=== PATIENT | female | born 1995 | race Hispanic/Latino ===

== ENCOUNTER 2018-08-05 08:08 | Day surgery (SDC) | payer OTHER, SELFPAY ==
[2018-08-04 16:35] LABS: Absolute Lymphocytes (CBC) 2.5 K/uL (0.7-4.9); Absolute Monocytes 0.5 K/uL (0.1-1.3); Absolute Neutrophil 5.7 K/uL (1.8-8.0); Basophils % 0.3 % (0-1.3); Eosinophils % 2.9 % (0-4.4); Hematocrit 38.8 % (36.0-45.0); Lymphocytes % 27.9 % (15.3-44.8); MPV 11.4 fL (7.6-11.3); Monocytes % 5.8 % (3.3-12.3); RBC Red Blood Cell Count 4.95 M/uL (3.86-4.86)
[2018-08-04 17:04] LABS: Potassium 3.7 mmol/L (3.5-5.1)
[2018-08-05] MEDS ORDERED: Ringers Lactate 1,000 ML IV ONE (08:26)
[2018-08-05] MEDS ORDERED: LIDOCAINE 1% MPF 5 ML VIAL ONE (09:14)
[2018-08-05] MEDS ORDERED: FENTANYL CITR 100 MCG/2 ML ONE (09:14)
[2018-08-05] MEDS ORDERED: PROPOFOL 200 MG/20 ML VIAL IV ONE (09:14)
[2018-08-05] MEDS ORDERED: MIDAZOLAM HCL 2 MG/2 ML INJ ONE (09:15)
[2018-08-05] MEDS ORDERED: CEFAZOLIN/SWI 1gm 1 GM/10 ML SYR ONE (09:29)
[2018-08-05] MEDS ORDERED: KETOROLAC 30 MG/ML INJ ONE (09:52)
[2018-08-05] MEDS ORDERED: ONDANSETRON 4 MG/2 ML VIAL ONE (10:06)
--- NOTE | 2018-08-05 10:23 | P.BOP ---
Preoperative diagnosis: left breast tender palpable mass Postoperative diagnosis: same Primary procedure: Left breast lumpectomy Forestry Crew Chief: Yenifer Gardner (Karina) Estimated blood loss: <10cc Specimen: breast mass Findings: see dictation Anesthesia: General Complications: None Transferred to: Recovery Room Condition: Good
[2018-08-05] MEDS ORDERED: Mastisol Adhesive Liq ONE (10:34)
[2018-08-05] MEDS: HYDROMORPHONE HCL 1 MG/ML INJ ONE ×2 (10:49→10:54)
[2018-08-05] MEDS ORDERED: CODEINE 30MG/APAP 300MG TAB ONE (11:33)
--- NOTE | 2018-08-06 19:43 | OP ---
Date of Procedure: 08/06/2018 Surgeon: Mack Manzano MD Design Draftsman: Doris Cunha Preoperative Diagnosis: Left breast tender palpable mass. Postoperative Diagnosis: Left breast tender palpable mass. Procedure: Left breast lumpectomy. Estimated Blood Loss: Less than 10 cc. Specimen: Breast mass. Anesthesia: General plus local. Findings: The patient has clearly palpable left breast mass, multilobulated. Indications: This is a case of a 22-year-old patient, who comes to us with a larger mass and given h er pain and discomfort, she wants that removed. It is large mass in that region. The benefits, alte rnatives, and risks of lumpectomy fully explained to the patient, which include but are not limited t o infection, bleeding, damage to adjacent structures, anesthesia complication, chronic pain, chronic numbness, deformity, VA, even . She also understands this may not relieve the symptoms. She mi ght need more than one surgical intervention. She wants the mass removed. She does not just want to continue with just conservative treatment or needle biopsies. Description Of Procedure: The patient was brought to the operating room, placed in supine position. Anesthesia was done without complication. The area was marked by me and the patient in the holding room. So, we prepped and draped the left breast in a usual sterile fashion. Made a curvilinear inci estephania, incision was carried down to deep breast tissue and now we found the mass. We remove the mass from the area, it is a large mass, completely out. Area was irrigated. Hemostasis was obtained and then the area was closed with a combination of 3-0 chromic and then 4-0 PDS. Sponge count and instru ment counts were correct. This was done after irrigation and after hemostasis. The patient sent to Recovery in stable condition. DISCHARGE SUMMARY Diagnosis: Left breast tender palpable mass. Procedure: Left breast lumpectomy. Disposition: Home. Activity: As tolerated. No heavy lifting. Followup: Follow up in my office in 1 week. Call for appointment [phone]. Keep the area dry for 4 8 hours and then may shower. Keep Steri-Strip intact. The patient advised the importance of breast support. Medications: See orders. HM/MODL Voice ID: [id number] Report ID: [id number]
== END 2018-08-05 12:00 | disposition home or self-care (01) ==
LOC: OR 08:08
PROVIDERS: ATTEND Surgery
PROC: 0HBU0ZX Excision of Left Breast, Open Approach, Diagnostic (ICD-10-PCS; principal; 2018-08-05 10:00)
DX: D48.62 Neoplasm of uncertain behavior of left breast (principal)
CPT/HCPCS: 36415; 80048; 84703; 85025; 88305; 88307; J0690; J1170; J2250; J2405; J2704; J3010

== ENCOUNTER 2021-07-03 16:41 | Inpatient (IN) | payer OTHER, SELFPAY ==
--- OUTSIDE RECORDS SUMMARY | 2021-07-03 17:26 | XMS REPORT | Continuity of Care Document ---
:1995 Author Organization [facility] t Address [address] [place] [address] Dr. Orr [address] [place] [id number] Care Team Providers Name Role Phone MARCELINO MASTERSON Attending Clinician Unavailable Problems This patient has no known problems. Allergies, Adverse Reactions, Alerts Allergy Allergy Status Severity Reaction(s) Onset Inactive Treating Comm ents Source Name Type Date Date Clinician NO KNOWN Drug Active [facility] ALLERGMARILYN [facility] Medications This patient has no known medications. Procedures This patient has no known procedures. Encounters Start End Encounter Admission Attending Care Care Encounter Source Date/Time Date/Time Type Type Clinicians Facility Department ID 2020-06-21 2020-06-21 Outpatient R TIFFANIE MASTERSON [facility] [id number] [employer] 11:20:00 11:20:00 MARCELINO portillo [facility] Results This patient has no known results.
[2021-07-03 18:25] LABS: Urine Blood Trace-intact (Negative); Urine Glucose Negative (Negative); Urine Protein Negative (Negative); Urine Specific Gravity >=1.030 (1.005-1.030)
[2021-07-03 18:41] LABS: Barbiturates NEGATIVE (NEGATIVE); Benzodiazepines NEGATIVE (NEGATIVE); Cocaine NEGATIVE (NEGATIVE); METHAMPHETAM NEGATIVE (NEGATIVE); Methadone NEGATIVE (NEGATIVE); Opiates NEGATIVE (NEGATIVE); Phencyclidine NEGATIVE (NEGATIVE); THC Cannibis NEGATIVE (NEGATIVE)
[2021-07-03 18:43] LABS: Urine Specific Gravity/Preg >1.030 (1.005-1.030)
[2021-07-03 18:44] LABS: Hematocrit 40.6 % (36.0-45.0); Lymphocytes % 11.6 % (15.3-44.8); MPV 10.2 fL (7.6-11.3); RBC Red Blood Cell Count 4.84 M/uL (3.86-4.86)
[2021-07-03 18:47] LABS: Protime INR 1.09
[2021-07-03] MEDS ORDERED: D5W IV SCH (19:00)
[2021-07-03] MEDS ORDERED: ACETYLCYSTEINE IV SCH ×2 (19:00→21:00)
[2021-07-03 19:07] LABS: Albumin 4.5 g/dL (3.4-5.0); Bilirubin Direct 0.2 mg/dL (0-0.2); Bilirubin Total 0.4 mg/dL (0.2-1.0); Potassium 3.5 mmol/L (3.5-5.1); Protein, Total 8.5 g/dL (6.4-8.2)
--- NOTE | 2021-07-03 19:28 | EDPHYS ---
Physician Documentation [facility] Name: Ada Peterson Age: 25 yrs Sex: Female : 1995 Arrival Date: 07/03/2021 Time: 16:47 Bed 18 Private MD: ED Physician Krishan Kyle HPI: 07/03 18:01 This 25 yrs old Female presents to ER via Ambulatory with complaints of ms3 Nausea/ overdose. 18:02 The patient presents to the emergency department with depression, a history of a ms3 suicide gesture, where the patient took pills/medications. Onset: The symptoms/episode began/occurred acutely, 3 hour(s) ago. The patient presents to the emergency department with nausea, that is moderate. Possible causes: Tylenol overdose. The symptoms are aggravated by nothing. The symptoms are alleviated by nothing. Associated signs and symptoms: The patient has no apparent associated signs or symptoms. 25-year-old female with no past medical history presents for nausea after taking 20-500 mg acetaminophen tablets 3 hours prior to arrival. Patient states her nausea is a 7/10. Patient denies alleviating or inciting factors. Patient denies fevers, chills, abdominal pain.. 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 - Social history:: Smoking status: Patient denies any tobacco usage or history of. ROS: 18:02 Constitutional: Negative for fever, and chills. Neck: Negative for injury, pain, and ms3 swelling, Cardiovascular: Negative for chest pain, and palpitations. Respiratory: Negative for shortness of breath, cough, wheezing, and pleuritic chest pain. 18:02 Abdomen/GI: Positive for nausea. 18:02 Psych: Positive for suicide gesture. 18:02 All other systems are negative. Exam: 18:02 Constitutional: This is a well developed, well nourished patient who is awake, alert, ms3 and in no acute distress. Eyes: Pupils equal round and reactive to light, extra-ocular motions intact. Lids and lashes normal. Conjunctiva and sclera are non-icteric and not injected. Periorbital areas with no swelling, redness, or edema. Neck: Trachea midline, no cervical lymphadenopathy. Supple, full range of motion without nuchal rigidity, or vertebral point tenderness. No Meningismus. Chest/axilla: Normal chest wall appearance and motion. Nontender with no deformity. Cardiovascular: Regular rate and rhythm with a normal S1 and S2. No gallops, murmurs, or rubs. Normal PMI, no JVD. No pulse deficits. Respiratory: Lungs have equal breath sounds bilaterally, clear to auscultation and percussion. No rales, rhonchi or wheezes noted. No increased work of breathing, no retractions or nasal flaring. Back: No spinal tenderness. No costovertebral tenderness. Full range of motion. Skin: Warm, dry with normal turgor. Normal color with no rashes, no lesions, and no evidence of cellulitis. MS/ Extremity: Pulses equal, no cyanosis. Neurovascular intact. Full, normal range of motion. 18:02 Psych: Behavior/mood is depressed. 18:30 ECG was reviewed by the Attending Physician. ms3 Vital Signs: 17:40 BP 118 / 74; Pulse 95; Resp 16; Temp 98.3; Pulse Ox 100% ; Weight 54.43 kg; Height 5 bp ft. 3 in. (160.02 cm); 17:40 Body Mass Index 21.26 (54.43 kg, 160.02 cm) bp MDM: 18:00 Patient medically screened. ms3 18:02 Differential diagnosis: acute psychotic break, depression, gastritis. ms3 19:14 Data reviewed: vital signs, nurses notes, lab test result(s). Data interpreted: Pulse ms3 oximetry: on room air is 100 %. Interpretation: normal. Counseling: I had a detailed discussion with the patient and/or guardian regarding: the historical points, exam findings, and any diagnostic results supporting the discharge/admit diagnosis, lab results, the need for further work-up and treatment in the hospital, to return to the emergency department if symptoms worsen or persist or if there are any questions or concerns that arise at home. ED course: Case discussed with YASMIN Delarosa. Patient to be admitted to Dr Hardwick.. 19:20 Patient medically screened. [facility] 07/03 18:01 Order name: Acetaminophen; Complete Time: 19:20 ms3 07/03 18:01 Order name: Basic Metabolic Panel; Complete Time: 19:20 ms3 07/03 18:01 Order name: CBC with Diff; Complete Time: 19:00 ms3 07/03 18:01 Order name: ETOH Level; Complete Time: 19:20 ms3 07/03 18:01 Order name: Hepatic Function; Complete Time: 19:20 ms3 07/03 18:01 Order name: PT-INR; Complete Time: 19:00 ms3 07/03 18:01 Order name: Ptt, Activated; Complete Time: 19:00 ms3 07/03 18:01 Order name: Salicylate; Complete Time: 19:20 ms3 07/03 18:01 Order name: Urine Drug Screen; Complete Time: 19:00 ms3 07/03 18:01 Order name: COVID-19 SARS RT PCR (Document "Date of Onset" if Symptomatic) ms3 07/03 18:25 Order name: Urine Dipstick-Ancillary; Complete Time: 19:00 EDMS 07/03 18:30 Order name: Urine --Ancillary (enter results); Complete Time: 19:00 bd 07/04 03:43 Order name: Protime (+INR) EDMS 07/04 03:48 Order name: CBC with Automated Diff EDMS 07/03 18:01 Order name: EKG; Complete Time: 18:02 ms3 07/03 18:01 Order name: EKG - Nurse/Tech; Complete Time: 18:48 ms3 07/03 18:01 Order name: IV Saline Lock; Complete Time: 18:48 ms3 07/03 18:01 Order name: Labs collected and sent; Complete Time: 18:48 ms3 07/03 18:01 Order name: Suicide Screening ([place]); Complete Time: 18:48 ms3 07/03 18:01 Order name: Urine Dipstick-Ancillary (obtain specimen); Complete Time: 18:48 ms3 07/03 18:01 Order name: Urine Test (obtain specimen); Complete Time: 18:48 ms3 07/04 03:55 Order name: Comprehensive Metabolic Panel EDMS 07/04 03:55 Order name: Acetaminophen Level EDMS 07/04 03:55 Order name: Magnesium EDMS 07/04 16:51 Order name: Protime (+INR) EDMS 07/04 17:06 Order name: Comprehensive Metabolic Panel EDMS 07/04 17:06 Order name: Acetaminophen Level EDMS EC:30 Rate is 82 beats/min. Rhythm is regular. QRS [place] is Normal. Clinical impression: ms3 Normal ECG. Interpreted by me. Administered Medications: 19:04 Drug: Acetadote (acetylcysteine) 150 mg/kg Route: IV; Rate: calculated rate; Site: [facility] right antecubital; Disposition Summary: 07/03/21 19:27 Hospitalization Ordered Hospitalization Status: Inpatient Admission jana Provider: Heron Hardwick cha Condition: Fair jana Problem: new jana Symptoms: are unchanged jana Bed/Room Type: Standard [facility] Location: [facility] ER HOLD(07/04/21 08:33) Room Assignment: ERHOLD-(07/04/21 08:33) ss Diagnosis - Poisoning by 4-Aminophenol derivatives, intentional self-harm, initial encounter jana Discharge Instructions: - Discharge Summary Sheet mw2 Forms: - Medication Reconciliation Form jana - SBAR form jana Signatures: Dispatcher [employer] EDRI Krishan Kyle MD MD cha Calderon, Audri, RN RN aa5 Arlene Raphael RN RN ss Dino Weaver, RN Oneida Gutiérrez RN RN eb1 Aaron Fernandez DO DO ms3 Corrections: (The following items were deleted from the chart) 19:53 19:27 Intensive Care Unit [facility] eb1 19:53 19:27 [facility] eb1 07/04 05:39 07/03 19:53 [facility] ER HOLD eb1 eb1 07/04 05:39 07/03 19:53 ERHOLD- eb1 eb1 07/04 08:33 05:39 Intensive Care Unit eb1 ss 08:33 05:39 7- eb1 ss
--- NOTE | 2021-07-03 19:28 | ER ---
Nurse's Notes [facility] Name: Ada Peterson Age: 25 yrs Sex: Female : 1995 Arrival Date: 07/03/2021 Time: 16:47 Bed 18 Private MD: Diagnosis: Poisoning by 4-Aminophenol derivatives, intentional self-harm, initial encounter Presentation: 07/03 17:40 Chief complaint: Patient states: "I TOOK SOME PILLS. I WAS FEELING SAD". Coronavirus bp screen: At this time, the client does not indicate any symptoms associated with coronavirus-19. Ebola Screen: No symptoms or risks identified at this time. Initial Sepsis Screen: Does the patient meet any 2 criteria? No. Patient's initial sepsis screen is negative. Does the patient have a suspected source of infection? No. Patient's initial sepsis screen is negative. Risk Assessment: Do you want to hurt yourself or someone else? Other: PT NOT ANSWERING CLEARLY. Note PT STATES UNCERTAIN OF TYPE AND AMOUNT OF PILLS, S/S ONLY NAUSEA AND CHA. Onset of symptoms was July 03, 2021 at 15:00. 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 - Social history:: Smoking status: Patient denies any tobacco usage or history of. Screenin:30 Abuse screen: Denies threats or abuse. Nutritional screening: No deficits noted. aa5 Tuberculosis screening: No symptoms or risk factors identified. Fall Risk None identified. Assessment: 17:50 Reassessment: Pt reports she took approximately 20 tabs of Tylenol 500 mg at 1500 aa5 today. Pt denies vomiting, reports nausea. . 17:50 General: Appears comfortable, Behavior is calm, cooperative. Pain: Denies pain. Neuro: aa5 Level of Consciousness is awake, alert, obeys commands, Oriented to person, place, time, situation. Cardiovascular: Heart tones S1 S2 present Rhythm is regular. Respiratory: Airway is patent Respiratory effort is even, unlabored, Respiratory pattern is regular, symmetrical. GI: Abdomen is flat, non-distended, Bowel sounds present X 4 quads. Abd is soft and non tender X 4 quads. Reports nausea, Patient currently denies diarrhea, vomiting. : No signs and/or symptoms were reported regarding the genitourinary system. EENT: No signs and/or symptoms were reported regarding the EENT system. Derm: Skin is pink, warm \\T\\ dry. Musculoskeletal: Range of motion: intact in all extremities. 18:00 Reassessment: Poison control was contacted, spoke with Danitza at [facility] recommendations are as follow: obtain labs such as Tylenol level, coagulation, and LFTs. Starting Mucomyst bolus dose of 150 mg/kg now instead of waiting on Tylenol level since pt took high dose of Tylenol. Dr. Fernandez was notified of recommendations. . 18:30 Reassessment: Patient is alert, oriented x 3, equal unlabored respirations, skin aa5 warm/dry/pink. 18:40 Reassessment: Pt's belongings given to security for safe keeping (see pt's chart for aa5 personal valuables checklist). . 19:45 Reassessment: Contacted House Supervision to request a sitter. House will call back. vc1 19:51 Reassessment: Gilson with poison control recommends repeat labs (Tylenol, Liver enzymes, vc1 and INR) 2-3 hours before third bag of acetylcysteine finishes. 07/04 20:52 Reassessment: Patient discharged through [facility]. vc1 Psych: 07/03 17:50 [place] Suicide Severity Screening: In the past month, have you wished you were aa5 or wished you could go to sleep and not wake up? Patient responds "yes." "In the past month, have you actually had any thoughts of killing yourself?" Patient responds "yes." "In your lifetime, have you ever done anything, started to do anything, or prepared to do anything to end your life?" Patient responds "yes.". Subjective: Delusions are denied, Hallucinations are denied Having thoughts of suicide. Plan for suicide is attempted overdose with Tylenol. Objective: Patient is cooperative, Speech is normal, Affect is appropriate. Interventions: Removed personal items and placed in bag. Patient placed in hospital gown. Searched person for dangerous items. Urine collected and sent for urine drug test. Belonging list filled out. Safety Checks: Personal items have been removed. Door is open. Pt denies substance abuse. Commitment: Patient will be a voluntary commitment. 18:00 Safety Checks: Personal items have been removed. Door is open. aa5 18:15 Safety Checks: Personal items have been removed. Door is open. aa5 18:30 Safety Checks: Personal items have been removed. Door is open. aa5 18:45 Safety Checks: Personal items have been removed. Door is open. aa5 19:00 Safety Checks: Personal items have been removed. Door is open. aa5 Vital Signs: 17:40 BP 118 / 74; Pulse 95; Resp 16; Temp 98.3; Pulse Ox 100% ; Weight 54.43 kg; Height 5 bp ft. 3 in. (160.02 cm); 17:40 Body Mass Index 21.26 (54.43 kg, 160.02 cm) bp ED Course: 16:47 Patient arrived in ED. ds1 17:42 Triage completed. bp 17:42 Arm band placed on. bp 17:47 Aaron Fernandez DO is Attending Physician. ms3 17:50 Patient has correct armband on for positive identification. Placed in gown. Bed in low aa5 position. Call light in reach. Side rails up X2. 18:02 Xiao Lai RN is Primary Nurse. aa5 18:30 Initial lab(s) drawn, by nj, sent to lab. Inserted saline lock: 20 gauge in right aa5 antecubital area, using aseptic technique. Blood collected. 18:30 No provider procedures requiring assistance completed. aa5 19:05 Report given to KAREN Wilson. aa5 19:19 Primary Nurse role handed off by Xiao Lai RN [facility] 19:19 Attending Physician role handed off by Aaron Fernandez DO jana 19:19 Krishan Kyle MD is Attending Physician. jana 19:20 Heron Hardwick MD is Hospitalizing Provider. jana 19:24 Katie Springer RN is Primary Nurse. kd3 07/04 07:20 Patient admitted, IV remains in place. ph Administered Medications: 07/03 19:04 Drug: Acetadote (acetylcysteine) 150 mg/kg Route: IV; Rate: calculated rate; Site: aa right antecubital; Outcome: 19:27 Decision to Hospitalize by Provider. jana 07/04 20:53 Patient left the ED. vc1 20:55 Discharged to home ambulatory. sm5 20:55 Condition: stable 20:55 Discharge instructions given to patient, Instructed on discharge instructions, follow up and referral plans. Demonstrated understanding of instructions, follow-up care. Signatures: Krishan Kyle MD MD cha Sanford, Demi ds1 Xiao Lai, RN RN aa5 Mabel Lane, RN RN Dino Weaver, RN RN Donnell Gallardo mw2 Aaron Fernandez, DO ms3 Katie Springer RN RN 3 Sherley Liang RN RN 5 Amrita Muir RN RN vc1
--- NOTE | 2021-07-03 19:53 | P.HP ---
Certification for Inpatient Patient admitted to: Inpatient With expected LOS: >2 Midnights Patient will require the following post-hospital care: None Practitioner: I am a practitioner with admitting privileges, knowledge of patient current condition, hospital course, and medical plan of care. Services: Services provided to patient in accordance with Admission requirements found in Title 42 Section 412.3 of the Code of Federal Regulations Patient History Date of Service: 07/03/21 Reason for admission: tylenol overdose History of Present Illness: 25-year-old female with history of anxiety presents to the emergency department after taking approximately 20 -500 mg tablets of acetaminophen at 1500 today. Patient reports that she has been feeling very stressed and sad in regards to her school lately. Patient denies any previous suicide attempts or other mental health issues in the past. Patient was evaluated in the emergency department Poison control was contacted who recommended initiation of Acetadote treatment given the amount that she had taken her labs did return with an elevated acetaminophen level 192.2 which will have been approximately 3.5 hours after ingestion. Patient need to be admitted for Tylenol overdose and acetylcysteine treatment. At this time patient denies suicidal ideations reports that there was an impulsive decision that she regrets at this time. After patient is medically cleared will need to have evaluated by mental health. Allergies No Known Allergies Allergy (Verified 08/04/18 15:26) Home Medications: Mv-Min/Iron/Folic/Calcium/Vitk [Women's Multivitamin Tablet] 1 each PO DAILY 08/04/18 Codeine/APAP [Tylenol W/Codeine #3 tab] 1 tab PO Q4HP PRN #30 tab 08/05/18 Sulfamethoxazole/Trimethoprim [Bactrim Ds Tablet] 1 each PO BID #10 tablet 08/05/18 - Past Medical/Surgical History -: anxiety -: none Psychosocial/ Personal History: lives with family - Family History Family History: Reviewed- Non-Contributory - Social History Smoking Status: Never smoker Alcohol use: Yes CD- Drugs: No Caffeine use: Yes Place of Residence: Home Review of Systems 10-point ROS is otherwise unremarkable Gastrointestinal: Nausea, Vomiting Physical Examination - Physical Exam General: Alert, In no apparent distress, Oriented x3 HEENT: Atraumatic, PERRLA, Mucous membr. moist/pink, EOMI, Sclerae nonicteric Neck: Supple, 2+ carotid pulse no bruit, No LAD, Without JVD or thyroid abnormality Respiratory: Clear to auscultation bilaterally, Normal air movement Cardiovascular: Regular rate/rhythm, Normal S1 S2 Gastrointestinal: Normal bowel sounds, No tenderness Musculoskeletal: No tenderness Integumentary: No rashes Neurological: Normal gait, Normal speech, Normal strength at 5/5 x4 extr, Normal tone, Normal affect Lymphatics: No axilla or inguinal lymphadenopathy - Studies Laboratory Data (last 24 hrs) 07/03/21 18:30: PT 12.0, INR 1.09, APTT 29.4 07/03/21 18:30: WBC 8.5, Hgb 13.6, Hct 40.6, Plt Count 279 07/03/21 18:30: Sodium 136, Potassium 3.5, BUN 7, Creatinine 0.83, Glucose 130 H, Total Bilirubin 0.4, AST 15, ALT 21, Alkaline Phosphatase 63 Assessment and Plan - Plan Assessment: Acetaminophen overdose/suicidal gesture Plan: Acetaminophen overdose/suicidal gesture: Please control contacted recommended acetylcysteine treatment which has been initiated, protocol in place. [facility]ter present given suicidal gesture. After medical clearance patient will require evaluation by mental health. At this time patient is denying suicidal ideations reports that she made impulsive decision when feeling stressed and sad about school. Denies previous suicide attempts does have history of anxiety but is not on any medications. DVT PPX: Lovenox Code status: Full Discharge Plan: Home Plan to discharge in: 48 Hours - Advance Directives Does patient have a Living Will: No Does patient have a Durable POA for Healthcare: No - Code Status/Comfort Care Code Status Assessed: Yes (Full code) Critical Care: No Time Spent Managing Pts Care (In Minutes): 55
[2021-07-03] MEDS ORDERED: NA CHLORIDE 0.9% 1,000 ML IV SCH (20:02)
[2021-07-03] MEDS ORDERED: ONDANSETRON 4 MG/2 ML VIAL IV PRN (20:02)
[2021-07-03] MEDS ORDERED: ONDANSETRON 4 MG/2 ML VIAL ONE (20:02)
[2021-07-03] MEDS ORDERED: DEXTROSE 5% IV SCH (21:00)
[2021-07-03] MEDS ORDERED: WATER IV SCH (21:00)
[2021-07-03] MEDS ORDERED: NA CHLORIDE 0.9% 1,000 ML ONE (21:22)
[2021-07-03] MEDS ORDERED: Acetylcysteine 6000mg/30mL IV ONE (21:23)
[2021-07-04] MEDS ORDERED: D5W IV SCH (01:00)
[2021-07-04] MEDS ORDERED: ACETYLCYSTEINE IV SCH (01:00)
[2021-07-04] MEDS ORDERED: D5W 1,000 ML IV ONE (01:36)
[2021-07-04] MEDS ORDERED: Acetylcysteine 6000mg/30mL IV ONE (01:45)
[2021-07-04 03:43] LABS: Protime INR 1.36
[2021-07-04 03:45] LABS: Absolute Lymphocytes (CBC) 2.2 K/uL (0.7-4.9); Lymphocytes % 19.9 % (15.3-44.8); MPV 10.7 fL (7.6-11.3); RBC Red Blood Cell Count 4.04 M/uL (3.86-4.86)
[2021-07-04 03:53] LABS: ALT/SGPT 30 U/L (12-78); AST/SGOT 16 U/L (15-37); Albumin 3.3 g/dL (3.4-5.0); Alkaline Phosphatase 44 U/L (45-117); BUN Blood Urea Nitrogen 7 mg/dL (7-18); Bicarbonate 25 mmol/L (21-32); Bilirubin Total 0.4 mg/dL (0.2-1.0); Glucose Level 129 mg/dL (74-106); Magnesium 1.9 mg/dL (1.8-2.4); Potassium 3.2 mmol/L (3.5-5.1); Protein, Total 6.5 g/dL (6.4-8.2); Sodium Level 137 mmol/L (136-145)
[2021-07-04 04:35] VITALS: BMI 20.5
--- NOTE | 2021-07-04 07:54 | EKG ---
Test Date: 2021-07-03 Test Time: 18:30:42 [employer] Insurance Agent: GHULAM MEASUREMENT RESULTS: Intervals: Rate: 82 IL: 146 QRSD: 68 QT: 370 QTc: 432 [place]: P: 72 IL: 146 QRS: 79 T: 46 INTERPRETIVE STATEMENTS: Normal sinus rhythm Normal ECG No previous ECG available for comparison Electronically Signed On 07-04-21 07:52:32 CDT by David Polo
[2021-07-04] MEDS ORDERED: INFLUENZA VACCINE (for 6+ mo) 0.5 ML DOSE IMVAC ONE (08:00)
--- NOTE | 2021-07-04 08:47 | P.PN ---
Subjective Date of Service: 07/04/21 Chief Complaint: tylenol overdose Subjective: No new changes, Improving Physical Examination - Vital Signs Blood Pressure: 119/74 Pulse: 84 Respirations: 17 Pulse Ox (%): 98 - Physical Exam General: Alert, Oriented x3 HEENT: Atraumatic, Normocephalic Neck: Supple Respiratory: Normal air movement Cardiovascular: Regular rate/rhythm, Normal S1 S2 Neurological: Normal speech, Normal strength at 5/5 x4 extr, Cranial nerves 3-12 intact - Studies Laboratory Data (last 24 hrs) 07/03/21 18:30: PT 12.0, INR 1.09, APTT 29.4 07/03/21 18:30: WBC 8.5, Hgb 13.6, Hct 40.6, Plt Count 279 07/03/21 18:30: Sodium 136, Potassium 3.5, BUN 7, Creatinine 0.83, Glucose 130 H, Total Bilirubin 0.4, AST 15, ALT 21, Alkaline Phosphatase 63 Assessment And Plan - Plan Tylenol overdose: Patient is doing well and has stable vitals. we will monitor symptomatology closely. we will continue acetadote for tylenol overdose management. Parasuicide: She will be evaluated by psych for her parasuicide episode.
[2021-07-04] MEDS ORDERED: ENOXAPARIN 40 MG/0.4 ML SQ SCH (09:00)
[2021-07-04 16:51] LABS: Protime INR 1.39
[2021-07-04 17:05] LABS: ALT/SGPT 29 U/L (12-78); AST/SGOT 17 U/L (15-37); Albumin 3.5 g/dL (3.4-5.0); Alkaline Phosphatase 44 U/L (45-117); BUN Blood Urea Nitrogen 5 mg/dL (7-18); Bicarbonate 26 mmol/L (21-32); Bilirubin Total 0.2 mg/dL (0.2-1.0); Glucose Level 111 mg/dL (74-106); Potassium 3.2 mmol/L (3.5-5.1); Protein, Total 6.6 g/dL (6.4-8.2); Sodium Level 140 mmol/L (136-145)
[2021-07-04 17:39] VITALS: BP 122/80; TEMP 97.6
[2021-07-04 21:10] VITALS: O2SAT 100
== END 2021-07-04 21:05 | disposition home or self-care (01) | DRG 918 ==
LOC: ER 16:41 → ERHOLD 20:01
PROVIDERS: ADMIT Internal Medicine Nephrology; ATTEND Internal Medicine Nephrology
DX: T39.1X2A Poisoning by 4-Aminophenol derivatives, intentional self-harm, initial encounter (principal); F32.A Depression, unspecified; Z79.899 Other long term (current) drug therapy; Z20.822 Contact with and (suspected) exposure to COVID-19
CPT/HCPCS: 36415; 80048; 80053; 80076; 80307; 80320; 80329; 81003; 81025; 83735; 85025; 85610; 85730; 93005; 96374; 99284; J0132; J2405; J7030; J7060; U0003

== ENCOUNTER 2024-08-23 08:09 | Emergency (ER) | payer OTHER ==
--- OUTSIDE RECORDS SUMMARY | 2024-08-23 08:12 | XMS REPORT | Continuity of Care Document ---
Author Name Unknown Address [address] [place] [id number] [place] [address] [place] [address] [address] [place] [address] Care Team Providers Care Trade Marker Name Role Phone PCP, PATIENT DOES NOT HAVE A Primary Care Physic gayla Unavailable BBEETO ARREOLA Attending Clinician Unavailable BEBETO ARREOLA Attending Clinician Unavailable ADADA ADAME Attending Clinician Unavailable ADADA ADAME Attending Clinician Unavailable GC_GCBZW_Kadiyala_S Attending Clinician Unavaila ble GC_CPC_WalkInSchedul Attending Clinician Unavail able MARCELINO MASTERSON Attending Clinician Unavailable GC_GCBZW_Kadiyala_S Admitting Clinician Unavaila ble GC_CPC_WalkInSchedul Admitting Clinician Unavail able Payers Payer Name Policy Type Policy Number Effective Date Expirati on Date Source [employer] [id number] 2024 00:00:00 [facility] (EPO) [id number] [facility] 3 (HMO) [id number] Allergies, Adverse Reactions, Alerts Allergy Name Allergy Type Status Severity Reaction(s) Onset Date Inactive Date Treating Clinician Comments Source NO KNOWN ALLERGIE S Drug Class Active Univers [facility] Social History Social Habit Start Date Stop Date Quantity Comments Source Sexual orientation U [facility] Sex assigned at 1995 00:00:00 1995 00:00:00 [facility] Smoking Status Start Date Stop Date Source Tobacco smoking consumption unknown [facility] Encounters Start Date/Time End Date/Time Encounter Type Admission Type Attending Clinicians Care Facility Care Department Encounter ID Source 2024-08-18 14:30:00 2024-08-18 14:30:00 Outpatient ADA MIRANDA VIVIAN [facility] [id number] [facility] 2024-06-22 09:30:00 2024-06-22 09:51:19 Outpatient ADA MIRANDA VIVIAN [facility] [id number] [facility] 2023-04-24 00:00:00 2023-04-24 00:00:00 Outpatient GC_GCBZW_Ka diyala_S PRIV PRIV [id number] [facility] 2023-04-08 00:00:00 2023-04-08 00:00:00 Outpatient GC_GCBZW_Ka diyala_S PRIV PRIV [id number] [facility] 2023-03-27 00:00:00 2023-03-27 00:00:00 Outpatient GC_GCBZW_Ka diyala_S PRIV PRIV [id number] [facility] 2023-02-27 00:00:00 2023-02-27 00:00:00 Outpatient GC_GCBZW_Ka diyala_S PRIV PRIV [id number] [facility] 2023-01-30 00:00:00 2023-01-30 00:00:00 Outpatient GC_GCBZW_Ka diyala_S PRIV PRIV [id number] [facility] 2023-01-06 00:00:00 2023-01-06 00:00:00 Outpatient GC_GCBZW_Ka diyala_S PRIV PRIV [id number] [facility] 2023-01-01 00:00:00 2023-01-01 00:00:00 Outpatient GC_CPC_Walk InSchedul PRIV PRIV [id number] [facility] 2022-12-04 00:00:00 2022-12-04 00:00:00 Outpatient GC_GCBZW_Ka diyala_S PRIV PRIV [id number] [facility] 2022-12-04 00:00:00 2022-12-04 00:00:00 Outpatient GC_GCBZW_Ka diyala_S PRIV PRIV [id number] [facility] 2022-12-04 00:00:00 2022-12-04 00:00:00 Outpatient GC_GCBZW_Ka diyala_S PRIV PRIV [id number] [facility] 2022-11-29 00:00:00 2022-11-29 00:00:00 Outpatient GC_GCBZW_Ka diyala_S PRIV PRIV [id number] [facility] 2022-11-25 00:00:00 2022-11-25 00:00:00 Outpatient GC_GCBZW_Ka diyala_S PRIV PRIV [id number] [facility] 2022-11-21 00:00:00 2022-11-21 00:00:00 Outpatient GC_GCBZW_Ka diyala_S PRIV PRIV [id number] [facility] 2022-11-13 00:00:00 2022-11-13 00:00:00 Outpatient GC_GCBZW_Ka diyala_S PRIV PRIV [id number] [facility] 2022-11-13 00:00:00 2022-11-13 00:00:00 Outpatient GC_GCBZW_Ka diyala_S PRIV PRIV [id number] [facility] 2020-06-21 11:20:00 2020-06-21 11:20:00 Outpatient MARCELINO GOLD [facility] [id number] [facility]
[2024-08-23 08:50] LABS: Absolute Basophils 0.1 K/uL (0-0.5); Absolute Eosinophils 0.4 K/uL (0-0.5); Absolute Lymphocytes (CBC) 2.3 K/uL (0.7-4.9); Absolute Monocytes 0.6 K/uL (0.1-1.3); Absolute Neutrophil 8.8 K/uL (1.8-8.0); Basophils % 0.9 % (0-1.3); Eosinophils % 3.1 % (0-4.4); Hemoglobin 13.6 g/dL (12.0-15.0); Lymphocytes % 18.7 % (15.3-44.8); MCH 27.9 pg (27.0-35.0); MCV 82.1 fL (80-100); MPV 11.1 fL (7.6-11.3); Monocytes % 4.7 % (3.3-12.3); Neutrophils % 72.6 % (41.7-73.7); Nucleated Red Blood Cells % 0.1 % (0-0); Platelets 254 thou/uL (152-406); RBC Red Blood Cell Count 4.88 M/uL (3.86-4.86); Red Cell Distribution Width 15.3 % (12.1-15.2)
[2024-08-23 09:00] LABS: Sqamous Epithelial <5 /HPF (None Seen); Urine Bacteria <20 /HPF (<20); Urine Bilirubin NEGATIVE (Negative); Urine Blood 3+ (Negative); Urine Clarity Turbid (Clear); Urine Color Light-Yellow (Yellow); Urine Culture Reflex Order REFLEXED; Urine Glucose NEGATIVE (Negative); Urine Ketones NEGATIVE (Negative); Urine Microscopic Reflex YN ORDER UMIC; Urine Mucus Slight /HPF (None Seen); Urine Nitrite NEGATIVE (Negative); Urine Protein NEGATIVE (Negative); Urine RBC >50 /HPF (None Seen); Urine Urobilinogen Normal (Normal); Urine WBC <5 /HPF (<5); Urine pH 6.5 (5.0-7.0)
[2024-08-23 09:25] LABS: Anion Gap 9.7 mEq/L (5.0-15.0); Potassium 3.7 mEq/L (3.5-5.1)
--- NOTE | 2024-08-23 09:37 | RAD REPORT ---
EXAMINATION: US Transvaginal OB COMPARISON: None. HISTORY: VAGINAL BLEEDING Bed Name: 16 TECHNIQUE: Real-time ultrasound was performed through the pelvis. A transvaginal scan was performed t o better visualize the intrauterine contents and adnexa. FINDINGS: There is a single living intrauterine . Small yolk sac is noted. Crescentic near anechoic fluid collection along the posterior margin of the gestational sac near the midsegment of the uterus, measuring 1.3 x 1.6 x 0.6 cm, compatible with a small subchorionic hemorrhage. Both ovaries are visualized and appear unremarkable. There is no free fluid in the cul-de-sac. Measurements and Calculations: Noank rump length 14.7 millimeter, consistent with a sonographic age of 7 weeks, 3 days. The patient 's LMP dates are 06/29/2024. Expected due date by ultrasound: 04/26/2025 heart rate: 155 BPM. IMPRESSION: Single living intrauterine , with a composite sonographic age of 7 weeks, 3 days. Small subchorionic hemorrhage measuring up to 1.6 cm. Close clinical follow-up recommended, and consi deration of short-term sonographic follow-up, if clinically indicated.
--- NOTE | 2024-08-23 09:44 | ER ---
Nurse's Notes [facility] Name: Ada Peterson Age: 28 yrs Sex: Female : 1995 Arrival Date: 08/23/2024 Time: 08:09 Bed 16 Private MD: Diagnosis: Subchorionic hemorrhage, threatened miscarriage Presentation: 08/23 08:20 Chief complaint: Patient states: 8 WEEKS VAGINAL BLEED STARTED THIS AM. DENIES db PAIN. Coronavirus screen: Client denies travel out of the [place] in the last 14 days. At this time, the client does not indicate any symptoms associated with coronavirus-19. Ebola Screen: Patient negative for fever greater than or equal to 101.5 degrees Fahrenheit, and additional compatible Ebola Virus Disease symptoms Patient denies exposure to infectious person. Patient denies travel to an Ebola-affected area in the 21 days before illness onset. No symptoms or risks identified at this time. Initial Sepsis Screen: Does the patient meet any 2 criteria? Yes Does the patient have a suspected source of infection? No. Patient's initial sepsis screen is negative. Risk Assessment: Do you want to hurt yourself or someone else? Patient reports no desire to harm self or others. Onset of symptoms was August 23, 2024. 08:20 Method Of Arrival: Ambulatory db 08:20 Acuity: TYESHA 3 db Triage Assessment: 08:20 General: Appears in no apparent distress. comfortable, Behavior is calm, cooperative. db Pain: Denies pain. Respiratory: Airway is patent Respiratory effort is even, unlabored, Respiratory pattern is regular, symmetrical. GI: Reports. : Reports vaginal bleeding that is bright red. CONTINUOUS MINER: 08:20 1, Full Term 0, Premature 0, 0, Living 0, LMP 06/29/2024, db Verified, EDC 04/05/2025, Gestational age from LMP: 7 weeks 6 days 08:21 1, Full Term 0, Premature 0, 0, Living 0, LMP 06/27/2024, sb4 Verified, EDC 04/03/2025, Gestational age from LMP: 8 weeks 1 day Historical: - Allergies: 08:20 No Known Allergies; db - PMHx: 08:39 None; db - PSHx: 08:20 Lumpectomy of breast; db - Immunization history:: Adult Immunizations unknown. - Infectious Disease History:: Denies. - Social history:: Smoking status: Patient denies any tobacco usage or history of. Screenin:32 [facility] ED Fall Risk Assessment (Adult) History of falling in the last 3 months, db including since admission No falls in past 3 months (0 pts) Confusion or Disorientation No (0 pts) Intoxicated or Sedated No (0 pts) Impaired Gait No (0 pts) Mobility Assist Device Used No (0 pt) Altered Elimination No (0 pt) Score/Fall Risk Level 0 - 2 = Low Risk Oriented to surroundings, Maintained a safe environment. Abuse screen: Denies threats or abuse. Denies injuries from another. Nutritional screening: No deficits noted. Tuberculosis screening: No symptoms or risk factors identified. Assessment: 08:20 Obstetrical Assessment: General assessment: awake and alert, skin warm and dry. db Reassessment: Patient appears in no apparent distress at this time. Pain: Denies pain. : No deficits noted. No signs and/or symptoms were reported regarding the genitourinary system. Denies burning with urination. 09:43 Reassessment: Patient appears in no apparent distress at this time. Patient and/or db family updated on plan of care and expected duration. Pain level reassessed. Patient is alert, oriented x 3, equal unlabored respirations, skin warm/dry/pink. General: Appears in no apparent distress. comfortable, Behavior is calm, cooperative. Neuro: Level of Consciousness is awake, alert, obeys commands, Oriented to person, place, time, situation. Cardiovascular: No deficits noted. Respiratory: Airway is patent Respiratory effort is even, unlabored, Respiratory pattern is regular, symmetrical. Vital Signs: 08:20 BP 111 / 67; Pulse 64; Resp 16; Temp 97.9; Pulse Ox 98% ; Weight 68.95 kg; Height 5 ft. db 3 in. ; 09:39 BP 101 / 64; Pulse 68; Resp 16; Pulse Ox 97% on R/A; db 08:20 Body Mass Index 26.93 (68.95 kg, 160.02 cm) db Vitals: 09:53 Heart Tones UNABLE TO ASSESS SEE ULTRASOUND. db ED Course: 08:13 Patient arrived in ED. im 08:13 Aaron Fernandez DO is Attending Physician. ms3 08:13 Cindy Viveros PA-C is PHCP. sb4 08:20 Arm band placed on Patient placed in an exam room. db 08:26 Kasandra Hernandez, RN is Primary Nurse. db 08:32 Initial lab(s) drawn, by me, sent to lab. Inserted saline lock: 22 gauge in left db antecubital area, using aseptic technique. Blood collected. Flushed with 10 mL NS. 08:32 Patient has correct armband on for positive identification. Bed in low position. Call db light in reach. Side rails up X 1. Pulse ox on. NIBP on. 08:36 Patient taken to ultrasound. via wheelchair. db 08:40 Triage completed. db 09:04 US Transvaginal Ob In Process Unspecified. EDMS 09:52 No provider procedures requiring assistance completed. IV discontinued, intact, db bleeding controlled, No redness/swelling at site. 09:52 Provided Education on: DISCHARGE AND FOLLOWUP. db Administered Medications: No medications were administered Medication: 08:32 VIS not applicable for this client. db Outcome: 09:44 Discharge ordered by MD. sb4 09:51 Discharged to home ambulatory, with family, db 09:51 Condition: stable 09:51 Discharge instructions given to patient, Instructed on discharge instructions, follow up and referral plans. 09:53 Patient left the ED. db Signatures: Dispatcher [employer] EDMS Aaron Fernandez DO DO ms3 Kasandra Hernandez, RN RN db Cindy Viveros PA-C PAIgnacio sb4 Martha Regalado
--- NOTE | 2024-08-23 09:44 | EDPHYS ---
Physician Documentation [facility] Name: Ada Peterson Age: 28 yrs Sex: Female : 1995 Arrival Date: 08/23/2024 Time: 08:09 Bed 16 Private MD: ED Physician Aaron Fernandez HPI: 08/23 08:21 This 28 yrs old Female presents to ER via Unassigned with complaints of sb4 Vaginal Bleeding, + Preg <12wks. 08:21 The patient presents to the emergency department with vaginal bleeding, that is light. sb4 The estimated gestational age is 8 weeks. course: care: none, Leakage of Fluid: none appreciated, Ultrasound: the patient has not had an ultrasound, Risk/complications: no obvious risks or complications are appreciated. Previous pregnancies: the patient has never been . Associated signs and symptoms: Pertinent negatives: abdominal pain, dysuria, ruptured membranes, vomiting. The patient has not experienced similar symptoms in the past. The patient has not recently seen a physician. 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 - Infectious Disease History:: Denies. - Social history:: Smoking status: Patient denies any tobacco usage or history of. ROS: 08:21 Constitutional: Negative for fever, chills, and weight loss, sb4 08:21 : Positive for vaginal bleeding, 08:21 All other systems are negative, Exam: 08:21 Constitutional: This is a well developed, well nourished patient who is awake, alert, sb4 and in no acute distress. Head/Face: Normocephalic, atraumatic. Eyes: Extra-ocular motions intact. Periorbital areas with no swelling, redness, or edema. ENT: Mucous membranes moist. Cardiovascular: Regular rate and rhythm with a normal S1 and S2. Respiratory: No increased work of breathing, no retractions or nasal flaring. Abdomen/GI: Soft, non-tender, no distension. Skin: Warm, dry with normal turgor. Normal color with no rashes, no lesions, and no evidence of cellulitis. MS/ Extremity: Pulses equal, no cyanosis. Neurovascular intact. Full, normal range of motion. Vital Signs: 08:20 BP 111 / 67; Pulse 64; Resp 16; Temp 97.9; Pulse Ox 98% ; Weight 68.95 kg; Height 5 ft. db 3 in. ; 09:39 BP 101 / 64; Pulse 68; Resp 16; Pulse Ox 97% on R/A; db 08:20 Body Mass Index 26.93 (68.95 kg, 160.02 cm) db MDM: 08:15 Medical Screening Exam initiated sb4 08:22 Differential diagnosis: threatened Ab, ectopic , UTI, subchorionic hemorrhage. sb4 09:43 Data reviewed: vital signs, nurses notes, lab test result(s), radiologic studies, and sb4 as a result, I will discharge patient. Counseling: I had a detailed discussion with the patient and/or guardian regarding the historical points, exam findings, and any diagnostic results supporting the discharge/admit diagnosis, lab results, radiology results, the need for outpatient follow up, an OB/Gyne specialist, to return to the emergency department if symptoms worsen or persist or if there are any questions or concerns that arise at home. 08/23 08:21 Order name: Abo/rh Typing; Complete Time: 09:16 sb4 08/23 08:21 Order name: Basic Metabolic Panel; Complete Time: 09:25 sb4 08/23 08:21 Order name: CBC with Diff sb4 08/23 08:21 Order name: Test, Urine; Complete Time: 09:01 sb4 08/23 08:21 Order name: Quantitative Hcg; Complete Time: 09:25 sb4 08/23 08:21 Order name: UA Rfx Jayden Cult if indicated; Complete Time: 09:04 sb4 08/23 08:53 Order name: CBC Smear Scan EDRI 08/23 09:09 Order name: Urine Culture EDRI 08/23 08:21 Order name: US Transvaginal Ob; Complete Time: 09:38 sb4 08/23 08:21 Order name: IV Saline Lock; Complete Time: 08:35 sb4 08/23 08:21 Order name: Labs collected and sent; Complete Time: 08:35 sb4 Administered Medications: No medications were administered Disposition: 17:39 I was immediately available on-site in the Emergency Department for consultation in the ms3 care of the patient. Disposition Summary: 08/23/24 09:44 Discharge Ordered Notes: Location: Home sb4 Problem: new sb4 Symptoms: have improved sb4 Condition: Stable sb4 Diagnosis - Subchorionic hemorrhage, threatened miscarriage sb4 Followup: sb4 - With: Private Physician - When: 2 - 3 days - Reason: Recheck today's complaints, Re-evaluation by your physician Discharge Instructions: - Discharge Summary Sheet sb4 - Threatened Miscarriage sb4 - Subchorionic Hematoma sb4 - Vaginal Bleeding During , First Trimester, [id number]-[id number] sb4 Forms: - Patient Portal Instructions sb4 - Leadership Thank You Letter sb4 Signatures: Dispatcher [employer] EDAaron Little DO DO ms3 Kasandra Hernandez RN RN Cindy Childress, PA-C PA-C sb4 Corrections: (The following items were deleted from the chart) 08:21 08:21 ABO/RH TYPING+BB.LAB.BRZ ordered. EDMS EDMS 08:21 08:21 BASIC METABOLIC PANEL+C.LAB.BRZ ordered. EDMS EDMS 08:21 08:21 CBC+H.LAB.BRZ ordered. EDMS EDMS 08:21 08:21 Test, Urine+UC.LAB.BRZ ordered. EDMS EDMS 08:21 08:21 QUANTITATIVE HCG+C.LAB.BRZ ordered. EDMS EDMS 08:21 08:21 UA Rfx Jayden Cult if indicated+U.LAB.BRZ ordered. EDMS EDMS 08:21 08:21 Transvaginal Ob+US.RAD.BRZ ordered. EDMS EDMS
[2024-08-23 10:01] VITALS: TEMP 97.9
[2024-08-23 10:03] VITALS: BP 101/64; O2SAT 97
[2024-08-23 12:02] LABS: Blood Morphology Comment NOT SEEN (NOT SEEN); Platelet Estimate ADEQ; Platelets, Giant NOTED; White Blood Cell Scan OK (OK)
== END 2024-08-23 09:53 | disposition home or self-care (01) ==
LOC: ER 08:09
DX: O20.0 Threatened abortion (principal); Z3A.08 8 weeks gestation of pregnancy
CPT/HCPCS: 36415; 76817; 80048; 81001; 81025; 84702; 85025; 86900; 86901; 87086; 87088; 99284